=== PATIENT | female | born 1950 ===

== ENCOUNTER 2018-05-07 09:15 | Emergency (ER) | payer MEDICARE, OTHER ==
[2018-05-07 09:33] VITALS: BMI 31.2
[2018-05-07 09:35] VITALS: BP 178/73; PULSE 80; RESP 18; TEMP 97.9; O2SAT 99
--- NOTE | 2018-05-07 10:50 | ED PDOC ---
HPI: Female Pain Time Seen by Provider: 05/07/18 09:54 Chief Complaint (Nursing): Female Genitourinary Chief Complaint (Provider): Female Genitourinary History Per: Patient History/Exam Limitations: no limitations Onset/Duration Of Symptoms: Persistent (x2 weeks) Current Symptoms Are (Timing): Still Present Additional Complaint(s): 67 year old female with past history of diabetes, presents to the emergency department with a complaint of vaginal itching during urination for the past 2 weeks. She denies fever, chills, vaginal discharge, bloody urine, nausea, vomit ing, or back pain. Patient states she has not been evaluated by a doctor yet as she recently switched insurance and feels hesitant about her new primary doctor due to "bad reviews". PCP: Dr. Leonard Smith Past Medical History Reviewed: Historical Data, Nursing Documentation, Vital Signs Vital Signs: Last Vital Signs Temp 97.9 F 05/07/18 09:34 Pulse 80 05/07/18 09:34 Resp 18 05/07/18 09:34 BP 178/73 H 05/07/18 09:34 Pulse Ox 99 05/07/18 09:34 - Medical History PMH: Diabetes, HTN Denies: Chronic Kidney Disease - Family History Family History: States: Unknown Family Hx - Home Medications Home Medications: Ambulatory Orders Medication Instructions Recorded GlipiZIDE [Glucotrol] 10 mg PO BID #40 tab 05/07/18 Sulfamethoxazole/Trimethoprim 1 tab PO BID #14 tab 05/07/18 [Bactrim DS 800 mg-160 mg] metFORMIN [glucOPHAGE] 500 mg PO DAILY #20 tab 05/07/18 - Allergies Allergies/Adverse Reactions: Allergies Allergy/AdvReac Type Severity Reaction Status Date / Time Penicillins Allergy RASH Verified 07/02/16 09:11 Review of Systems ROS Statement: Except As Marked, All Systems Reviewed And Found Negative Constitutional: Negative for: Fever, Chills Gastrointestinal: Negative for: Nausea, Vomiting Genitourinary Female: Positive for: Other (vaginal itching with urination). Negative for: Hematuria, Vaginal Discharge Musculoskeletal: Negative for: Back Pain Physical Exam - Reviewed Nursing Documentation Reviewed: Yes Vital Signs Reviewed: Yes - Physical Exam Appears: Positive for: Well, Non-toxic, No Acute Distress Head Exam: Positive for: ATRAUMATIC, NORMAL INSPECTION, NORMOCEPHALIC Skin: Positive for: Normal Color Eye Exam: Positive for: Normal appearance Cardiovascular/Chest: Positive for: Regular Rate, Rhythm Respiratory: Positive for: Normal Breath Sounds. Negative for: Respiratory Distress Gastrointestinal/Abdominal: Positive for: Normal Exam, Soft. Negative for: Tenderness (LLQ or RLQ) Extremity: Positive for: Normal ROM (upper/lower) Neurological/Psych: Positive for: Awake, Alert, Normal Tone, Oriented (x3) - ECG O2 Sat by Pulse Oximetry: 99 (RA) Pulse Ox Interpretation: Normal Medical Decision Making Medical Decision Making: Time: 1040 Initial Plan: work up for UTI vs. vaginitis * Urine dipstick * Accucheck Scribe Attestation: Documented by Evangelina Gleason, acting as a scribe for Jaquelin Gupta MD. Provider Scribe Attestation: All medical record entries made by the Scribe were at my direction and personally dictated by me. I have reviewed the chart and agree that the record accurately reflects my personal performance of the history, physical exam, medical decision making, and the department course for this patient. I have also personally directed, reviewed, and agree with the discharge instructions and d isposition. Disposition - Clinical Impression Clinical Impression: UTI (urinary tract infection), Diabetes mellitus - Patient ED Disposition Is Patient to be Admitted: No Doctor Will See Patient In The: Office Counseled Patient/Family Regarding: Diagnosis, Need For Followup, Rx Given - Disposition Referrals: Leonard Smith [Family Provider] - Disposition: Routine/Home Disposition Time: 12:00 Condition: STABLE Prescriptions: GlipiZIDE [Glucotrol] 10 mg PO BID #40 tab metFORMIN [glucOPHAGE] 500 mg PO DAILY #20 tab Sulfamethoxazole/Trimethoprim [Bactrim DS 800 mg-160 mg] 1 tab PO BID #14 tab Instructions: Urinary Tract Infections in Adults, Type 2 Diabetes Forms: [facility] ([place]) - POA Present On Arrival: None
[2018-05-07 11:16] LABS: SQUAMOUS EPITHIAL 3 /hpf (0-5); URINE BACTERIA RARE (<OCC); URINE BILIRUBIN NEGATIVE (NEGATIVE); URINE BLOOD NEGATIVE (NEGATIVE); URINE CLARITY CLOUDY (Clear); URINE COLOR YELLOW (YELLOW); URINE GLUCOSE (UA) >=500 mg/dL (NEGATIVE); URINE LEUKOCYTE ESTERASE MOD Leu/uL (Negative); URINE PROTEIN 100 mg/dL (NEGATIVE); URINE UROBILINOGEN 0.2-1.0 mg/dL (0.2-1.0)
== END 2018-05-07 12:32 | disposition home or self-care (01) ==
LOC: H.ER 09:15
DX: N39.0 Urinary tract infection, site not specified (principal); E11.8 Type 2 diabetes mellitus with unspecified complications; I10 Essential (primary) hypertension